=== PATIENT | male | born 1980 | race Caucasian/White ===

== ENCOUNTER 2017-08-17 07:07 | Day surgery (SDC) | payer OTHER, SELFPAY ==
[2017-08-13 14:04] VITALS: BMI 25.8
[2017-08-17] VITALS (14 sets, daily range): BP systolic 84–159; BP diastolic 46–114; PULSE 64–143; RESP 13–22; TEMP 36.6–36.7; O2SAT 95–100
--- NOTE | 2017-08-17 08:22 | HMH.PROC ---
[facility] Procedure Note Procedure Note:: Upper Endoscopy Procedure Report: Esophagogastroduodenoscopy with cold biopsies Endoscopost: Meir Tillman II, MD Referring Physician: Nehemias Guerrero MD Date of Procedure: August 17, 2017 Equipment: Olympus GIF 180 standard upper endoscope Sedation: Fentanyl 200 mg IV/ Versed 9 mg IV Indications: Mr. Rogers is a 37-year-old gentleman with heartburn, reflux and dyspepsia. He reports indigestion, epigastric abdominal discomfort, nausea and early satiety. He does take Zantac which helps a little bit but does not completely control his symptoms. He reports no dysphagia, weight loss or melena. He has had some bloating and gassiness with some cramps in the lower abdomen. He has noted a change in bowel habits and some bright red and maroon stools. Procedure: Prior to the procedure, a history and physical exam was performed, and patient's medications and allergies were reviewed. The risks, benefits and alternatives of the sedation and procedure were discussed with the patient. All questions were answered and informed consent was obtained. The patient was brought to the procedure room. Patient identification and proposed procedure were verified by the physician and the nurse. The patient was placed in a left lateral decubitus position and the scope was passed under direct vision. Throughout the procedure, the patient's blood pressure, pulse, and oxygen saturations were monitored continuously. The upper GI endoscopy was accomplished without difficulty. The patient tolerated the procedure well. Findings: The scope was passed directly into the upper esophagus and advanced to the third portion of the duodenum. The post bulbar duodenum and duodenal bulb were normal with normal mucosa and conniventes. 2 biopsies were taken from the post bulbar duodenum. The scope was withdrawn through a normal duodenal bulb and pylorus into the stomach. There was some mild linear erythema of the antrum. There was some bile reflux. This was consistent with mild linear reactive gastritis. The remainder of the antrum, body and fundus of the stomach were grossly normal. Upon retroflexion there was no hiatal hernia. 2 biopsies were taken in the antrum and along the lesser curvature for histology to rule out gastritis and/or H pylori. The scope was then withdrawn into the esophagus. There was a serrated Z line. There was at least one tongue of salmon colored mucosa. There was also at least one linear superficial erosion. The remainder of the esophageal mucosa was normal. Impression: 1. Grade A reflux esophagitis 2. Mild linear reactive gastritis Plan: I do feel that the patient has some functional dyspepsia. I will follow up the biopsies. We will discuss additional treatment options. I will proceed with diagnostic colonoscopy.
--- NOTE | 2017-08-17 08:56 | HMH.PROC ---
[facility] Procedure Note Procedure Note:: Colonoscopy Procedure Report: Colonoscopy with monopolar ablation to destruction of internal hemorrhoids Endoscopist: Meir Tillman II, MD Referring physician: Dat Guerrero MD Date of Procedure: August 17, 2017 Equipment: Olympus 180 variable stiffness pediatric colonoscope Sedation: Fentanyl 200 mg IV/ Versed 13 mg IV Indication: Mr. Rogers is a 37-year-old gentleman who is here for diagnostic colonoscopy. He has had bright red and some dark rectal bleeding. He reports no melena. He also has had a change in bowel habits with constipation that alternates with diarrhea. He often has a feeling of incomplete bowel evacuation/incomplete defecation. He does note some bloating, gassiness and abdominal crampy discomfort. He also reports some dyspepsia. He reports no weight loss. He reports no family history of colitis, Crohn's disease or colon cancer. This is his first colonoscopy. Procedure: Prior to the procedure, a history and physical exam was performed, and patient's medications and allergies were reviewed. The risks, benefits and alternatives of the sedation and procedure were discussed with the patient. All questions were answered and informed consent was obtained. The patient was brought to the procedure room. Patient identification and proposed procedure were verified by the physician and the nurse. The patient was placed in a left lateral decubitus position and the scope was passed under direct vision. Throughout the procedure, the patient's blood pressure, pulse, and oxygen saturations were monitored continuously. The colonoscopy was accomplished without difficulty. The patient tolerated the procedure well. Findings: On digital rectal examination there was normal rectal tone. There were no external hemorrhoids. The colonoscope was introduced through the anal canal to the rectum and advanced to the cecum. The ileocecal valve and appendiceal orifice were identified. The scope was advanced a short distance into the ileum which appeared grossly normal. The scope was then withdrawn into the colon. The cecum, ascending, transverse, descending, sigmoid and rectum were grossly normal. There were no mucosal abnormalities identified. Upon retroflexion within the rectum there were grade 1-2 internal hemorrhoids. These hemorrhoids were ablated using monopolar ablation to destruction of 3 columns of hemorrhoids. Impression: 1. Normal colonoscopy with intubation of the terminal ileum 2. Grade 1-2 internal hemorrhoids status post monopolar ablation to destruction Plan: I would encourage dietary measures, fiber bowel regimen and treatment for visceral sensitivity. We will discuss treatment measures. I do feel that he has some functional bowel disease/IBS with SIBO. His rectal bleeding is attributable to the internal hemorrhoids.
--- NOTE | 2017-08-17 09:00 | P.PCN_ITS ---
[facility] Procedure Note Procedure Note:: Colonoscopy Procedure Report: Colonoscopy with monopolar ablation to destruction of internal hemorrhoids Endoscopist: Meir Tillman II, MD Referring physician: Dat Guerrero MD Date of Procedure: August 17, 2017 Equipment: Olympus 180 variable stiffness pediatric colonoscope Sedation: Fentanyl 200 mg IV/ Versed 13 mg IV Indication: Mr. Rogers is a 37-year-old gentleman who is here for diagnostic colonoscopy. He has had bright red and some dark rectal bleeding. He reports no melena. He also has had a change in bowel habits with constipation that alternates with diarrhea. He often has a feeling of incomplete bowel evacuation /incomplete defecation. He does note some bloating, gassiness and abdominal crampy discomfort. He also reports some dyspepsia. He reports no weight loss. He reports no family history of colitis, Crohn's disease or colon cancer. This is his first colonoscopy. Procedure: Prior to the procedure, a history and physical exam was performed, and patient' s medications and allergies were reviewed. The risks, benefits and alternatives of the sedation and procedure were discussed with the patient. All questions were answered and informed consent was obtained. The patient was brought to the procedure room. Patient identification and proposed procedure were verified by the physician and the nurse. The patient was placed in a left lateral decubitus position and the scope was passed under direct vision. Throughout the procedure, the patient's blood pressure, pulse, and oxygen saturations were monitored continuously. The colonoscopy was accomplished without difficulty. The patient tolerated the procedure well. Findings: On digital rectal examination there was normal rectal tone. There were no external hemorrhoids. The colonoscope was introduced through the anal canal to the rectum and advanced to the cecum. The ileocecal valve and appendiceal orifice were identified. The scope was advanced a short distance into the ileum which appeared grossly normal. The scope was then withdrawn into the colon. The cecum, ascending, transverse, descending, sigmoid and rectum were grossly normal. There were no mucosal abnormalities identified. Upon retroflexion within the rectum there were grade 1-2 internal hemorrhoids. These hemorrhoids were ablated using monopolar ablation to destruction of 3 columns of hemorrhoids. Impression: 1. Normal colonoscopy with intubation of the terminal ileum 2. Grade 1-2 internal hemorrhoids status post monopolar ablation to destruction Plan: I would encourage dietary measures, fiber bowel regimen and treatment for visceral sensitivity. We will discuss treatment measures. I do feel that he has some functional bowel disease/IBS with SIBO. His rectal bleeding is attributable to the internal hemorrhoids.
== END 2017-08-17 10:10 | disposition home or self-care (01) ==
LOC: OUTP 07:15
PROVIDERS: Visit Provider Internal Medicine Gastroenterology
PROC: 0DJ08ZZ Inspection of Upper Intestinal Tract, Via Natural or Artificial Opening Endoscopic (ICD-10-PCS; CPT 43235; principal; 2017-08-17 08:30)
DX: K64.0 First degree hemorrhoids; K64.1 Second degree hemorrhoids; K21.0 Gastro-esophageal reflux disease with esophagitis; K29.60 Other gastritis without bleeding
CPT/HCPCS: 45388; 43239; 99152; 99153